=== PATIENT | female | born 1950 | race Two or more races ===

== ENCOUNTER 2022-10-29 13:43 | Emergency (ER) | payer SELFPAY ==
[2022-10-29] MEDS ORDERED: Ketorolac Tromethamine 30 MG/ML VIAL ONE (14:09)
== END 2022-10-29 15:57 | disposition home or self-care (01) ==
LOC: ERS 13:43
DX: S83.91XA Sprain of unspecified site of right knee, initial encounter (principal); E03.9 Hypothyroidism, unspecified; I10 Essential (primary) hypertension; W19.XXXA Unspecified fall, initial encounter; Z79.899 Other long term (current) drug therapy
CPT/HCPCS: 96372; J1885